=== PATIENT | female | born 1995 | race Caucasian/White ===

== ENCOUNTER 2018-01-19 17:51 | Emergency (ER) | payer BC ==
[~2018-01-19] VITALS: Ht 160 cm; Wt 81.6 kg
[2018-01-19 18:05] VITALS: Ht 160 cm; Wt 81.6 kg
[2018-01-19 23:21] VITALS: BP 119/56
== END 2018-01-19 23:21 | disposition home or self-care (01) ==
LOC: ED 17:51
DX: S16.1XXA Strain of muscle, fascia and tendon at neck level, initial encounter (principal); S30.1XXA Contusion of abdominal wall, initial encounter; V89.2XXA Person injured in unspecified motor-vehicle accident, traffic, initial encounter; Y93.73 Activity, racquet and hand sports; Y92.488 Other paved roadways as the place of occurrence of the external cause; Y99.8 Other external cause status
CPT/HCPCS: J1885; Q0162; Q9967

== ENCOUNTER 2020-01-15 13:47 | Emergency (ER) | payer BC, MEDICAID ==
[~2020-01-15] VITALS: Ht 162.6 cm; Wt 81.6 kg
[2020-01-15 14:15] VITALS: Ht 162.6 cm; Wt 81.6 kg
[2020-01-15 15:40] LABS: BASOPHIL % 0.3 % (0-2); PLATELET COUNT 231 x10^3mcL (130-400); RED CELL DISTRIBUTION WIDTH 13.3 % (11.5-14.5)
[2020-01-15 15:55] LABS: microscopic required? NO
[2020-01-15 16:11] LABS: urine erythrocyte NEGATIVE (NEGATIVE)
[2020-01-15 16:42] LABS: CALCIUM 9.3 mg/dL (8.5-10.1); CARBON DIOXIDE 21.5 mmol/L (21-32); CHLORIDE SERUM 103 mmol/L (98-107); CREATININE SERUM 0.6 mg/dL (0.6-1.0); GFR1 > 60 mL/min; GLUCOSE SERUM 82 mg/dL (74-106); POTASSIUM SERUM 4.1 mmol/L (3.5-5.1); SODIUM SERUM 136 mmol/L (136-145)
[2020-01-15 16:48] LABS: ALBUMIN 3.6 g/dL (3.4-5.0); ALKALINE PHOSPHATASE 41 U/L (46-116); ALT/SGPT 31 U/L (14-59); AST/SGOT 13 U/L (15-37); BILIRUBIN TOTAL 0.35 mg/dL (0.20-1.00); TOTAL PROTEIN, SERUM 7.5 g/dL (6.4-8.2)
[2020-01-15 17:41] VITALS: BP 118/74
== END 2020-01-15 17:41 | disposition home or self-care (01) ==
LOC: ED 13:47
PROVIDERS: Emergency Medicine
DX: O21.0 Mild hyperemesis gravidarum (principal); M79.7 Fibromyalgia; Z3A.15 15 weeks gestation of pregnancy
CPT/HCPCS: J1200; J2765; J3490; J7030